=== PATIENT | male | born 1980 | race Caucasian/White ===

== ENCOUNTER 2019-09-18 10:12 | Emergency (ER) | payer BC ==
[2019-09-18] MEDS ORDERED: HYDROmorphone 1 MG/ML CARPUJECT IM STA (12:00)
[2019-09-18] MEDS ORDERED: KETOROLAC 60 MG/2 ML VIAL IM STA (12:00)
[2019-09-18 12:36] VITALS: BP 113/88
--- NOTE | 2019-09-18 13:38 | ED Physician Documentation ---
History of Present Illness - Stated complaint Stated Complaint: RT SHOULDER/NECK PX - Chief complaint Chief Complaint: Trauma Ext - Additonal information Additional information: Patient comes emergency department complaining of spasm around the area of his right scapula. Patient denies any trauma. He has not worked out recently or done any other heavy lifting. He states he is just been playing with his kids. He has a history of low back issues and is actually had several surgeries. He states that this is sometimes caused issues in his upper back and neck. However, he cannot think of a specific trigger today. Patient denies cough or shortness of breath. No fevers. He has some numbness in his right shoulder but not distal to that. No other complaints at this time. Review of Systems Ten Systems: 10 systems reviewed and negative Constitutional: reports: Reviewed and negative Eyes: reports: Reviewed and negative Ears: reports: Reviewed and negative Nose: reports: Reviewed and negative Throat: reports: Reviewed and negative Cardiac: reports: Reviewed and negative Respiratory: reports: Reviewed and negative GI: reports: Reviewed and negative : reports: Reviewed and negative Skin: reports: Reviewed and negative Musculoskeletal: reports: Neck pain, Back pain Neurologic: reports: Reviewed and negative Psychiatric: reports: Reviewed and negative Endocrine: reports: Reviewed and negative Immunocompromised: reports: Reviewed and negative PD PAST MEDICAL HISTORY - Past Medical History Past Medical History: Yes - Past Surgical History Past Surgical History: Yes - Present Medications Home Medications: Ambulatory Orders Medication Instructions Recorded Confirmed Cyclobenzaprine [Flexeril] 10 mg PO TID PRN #20 tablet 09/18/19 Hydrocodone/Acetaminophen 1 - 2 each PO Q6H PRN #14 tablet 09/18/19 [Hydrocodon-Acetaminophen 5-325] - Allergies Allergies/Adverse Reactions: Allergies Allergy/AdvReac Type Severity Reaction Status Date / Time Sulfa (Sulfonamide Allergy Unknown Verified 09/18/19 10:29 Antibiotics) - Social History Does the pt smoke?: No Smoking Status: Never smoker Does the pt drink ETOH?: No Substance Use and Type: Marijuana - Immunizations Immunizations are current?: Yes PD ED PE NORMAL - Vitals Vital signs reviewed: Yes - General General: Alert and oriented X 3, No acute distress - HEENT HEENT: Atraumatic, PERRL, EOMI, Moist mucous membranes - Neck Neck: Supple, no meningeal sign - Respiratory Respiratory: No respiratory distress - Back Back: Other (Patient has tenderness over his right scapula and trapezius distribution with muscle spasm. 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 We have discussed home management of symptoms, as well as the need for follow-up in the usual indications for return Departure - Departure Disposition: 01 Home, Self Care Clinical Impression: Torticollis, acute Thoracic back pain Qualifiers: Chronicity: acute Back pain laterality: right Qualified Code(s): M54.6 - Pain in thoracic spine Condition: Stable Instructions: ED Neck Back Pain General Prescriptions: Cyclobenzaprine [Flexeril] 10 mg PO TID PRN #20 tablet PRN Reason: Spasms Hydrocodone/Acetaminophen [Hydrocodon-Acetaminophen 5-325] 1 - 2 each PO Q6H PRN #14 tablet PRN Reason: pain
== END 2019-09-18 13:49 | disposition home or self-care (01) ==
LOC: ED 10:12
DX: M43.6 Torticollis (principal); M54.6 Pain in thoracic spine
CPT/HCPCS: 96372; 99283; J1170

== ENCOUNTER 2020-03-28 10:35 | Outpatient (CLI) | payer BC ==
[2020-03-28 17:40] LABS: BASOPHILS % (AUTO) 0.7 %; EOSINOPHILS # (AUTO) 0.2 10^3/uL (0.0-0.7); EOSINOPHILS % (AUTO) 3.9 %; HGB - HEMOGLOBIN 14.3 g/dL (14.0-18.0); LYMPHOCYTES # (AUTO) 0.9 10^3/uL (1.5-3.5); LYMPHOCYTES % (AUTO) 21.6 %; MEAN CORPUSCULAR HEMOGLOBIN 30.2 pg (27.0-31.0); MEAN CORPUSCULAR HGB CONC 33.2 g/dL (32.0-36.0); MEAN CORPUSCULAR VOLUME 90.9 fL (80.0-94.0); MEAN PLATELET VOLUME 10.1 fL (7.4-11.4); MONOCYTES # (AUTO) 0.5 10^3/uL (0.0-1.0); MONOCYTES % (AUTO) 11.3 %; NEUTROPHILS # (AUTO) 2.7 10^3/uL (1.5-6.6); NEUTROPHILS % (AUTO) 62.3 %; PLT - PLATELET COUNT 262 10^3/uL (130-450); RED BLOOD COUNT 4.74 10^6/uL (4.70-6.10); WHITE BLOOD COUNT 4.4 x10^3/uL (4.8-10.8)
[2020-03-28 18:01] LABS: ALBUMIN 4.5 g/dL (3.2-5.5); ALBUMIN/GLOBULIN RATIO 1.8 (1.0-2.2); BILIRUBIN,TOTAL 0.5 mg/dL (0.2-1.0); CALCIUM 9.5 mg/dL (8.5-10.3); CREATININE 0.8 mg/dL (0.6-1.2)
== END 2020-03-28 23:59 | disposition home or self-care (01) ==
LOC: LAB.WCP 10:35
PROVIDERS: ATTEND Family Medicine
DX: R10.32 Left lower quadrant pain (principal)
CPT/HCPCS: 36415; 80053; 83690; 85025

== ENCOUNTER 2020-03-29 08:16 | Outpatient (CLI) | payer BC ==
[2020-03-29] MEDS ORDERED: IOVERSOL 320 50 ML VIAL ONE (08:27)
[2020-03-29] MEDS ORDERED: IOVERSOL 320 100 ML VIAL IVP ONE ×2 (08:27→11:57)
--- NOTE | 2020-03-29 10:12 | CT Report ---
PROCEDURE: Abdomen/Pelvis W INDICATIONS: ABD PAIN, LLQ CONTRAST: IV CONTRAST: Optiray 320 ml: 100 PO CONTRAST: Optiray 320 ml50 TECHNIQUE: After the administration of oral and intravenous contrast, 5 mm thick sections acquired from the diap hragms to the symphysis. 5 mm thick coronal and sagittal reformats were acquired. For radiation dos e reduction, the following was used: automated exposure control, adjustment of mA and/or kV accordin g to patient size. COMPARISON: None. FINDINGS: Image quality: Excellent. ABDOMEN: Lung bases: Lung bases are clear. Heart size is normal. Solid organs: Liver and spleen are normal in size and enhancement. Gallbladder is unremarkable. Bi liary system is non dilated. Pancreas enhances normally. No adrenal nodules. Kidneys demonstrate n ormal size and enhancement, without hydronephrosis. Peritoneum and bowel: Question mild wall thickening involving the distal sigmoid and rectosigmoid ju nction region versus collapsed bowel resulting in mild wall thickening. There are small diverticuli i n this location. Bowel loops otherwise demonstrate normal wall thickness and caliber. No free fluid or air. Nodes and vessels: No retroperitoneal or mesenteric adenopathy by size criteria. Aorta and inferior vena cava are normal in size. Miscellaneous: No ventral hernias. PELVIS: Genitourinary: Bladder wall thickness is normal. Miscellaneous: No inguinal hernias or adenopathy. Bones: No suspicious bony lesions. No vertebral body compression fractures. Lower lumbar fusion, w ith gabby and pedicle screw fixation of L3, L4, and S1 and interbody fusion material at L4-L5. Posterio r laminectomy at L5-S1 and right hemilaminectomy at L4-L5. IMPRESSION: 1. Question very mild changes of distal sigmoid/rectosigmoid diverticulitis. There are scattered dive rticuli in this location and there is possible mild wall thickening versus nondistended bowel. 2. No other significant findings. Reviewed by: Abhishek Craft MD on 03/29/2020 10:10 AM PST Approved by: Abhishek Craft MD on 03/29/2020 10:10 AM PST Station ID: [id number]
[2020-03-29] MEDS ORDERED: IOVERSOL 320 50 ML VIAL PO ONE (11:57)
== END 2020-03-29 08:17 | disposition home or self-care (01) ==
LOC: DI 08:16
PROVIDERS: ATTEND Family Medicine
DX: K57.30 Diverticulosis of large intestine without perforation or abscess without bleeding (principal)
CPT/HCPCS: 74177; Q9967

== ENCOUNTER 2020-04-18 17:52 | Outpatient (CLI) | payer BC | END 2020-04-18 17:53 | disposition home or self-care (01) | LOC: COV 17:52 | PROVIDERS: ATTEND Surgery | DX: Z01.812 Encounter for preprocedural laboratory examination (principal); R10.9 Unspecified abdominal pain; K92.1 Melena; Z20.828 Contact with and (suspected) exposure to other viral communicable diseases ==

== ENCOUNTER 2020-04-22 12:33 | Day surgery (SDC) | payer BC ==
[2020-04-22] MEDS ORDERED: LACTATED RINGERS 1,000 ML IV ONE ×2 (12:51→15:41)
[2020-04-22] MEDS ORDERED: LIDO GARGLE 30 ML BOTTLE ONE (14:23)
[2020-04-22] MEDS ORDERED: BENZOCAINE/TETRACAINE/BUTAMBEN 20 GM ONE (14:23)
[2020-04-22] MEDS ORDERED: fentaNYL 100 MCG/2 ML VIAL IVP ONE (14:28)
[2020-04-22] MEDS ORDERED: MIDAZOLAM 2 MG/2 ML VIAL IVP ONE (14:28)
[2020-04-22] MEDS ORDERED: BENZOCAINE/TETRACAINE/BUTAMBEN 20 GM TOP ONE (14:40)
[2020-04-22] MEDS ORDERED: LIDO GARGLE 30 ML BOTTLE TOP ONE (14:40)
[2020-04-22 15:56] VITALS: BP 115/87
--- NOTE | 2020-04-22 17:40 | ANESTHESIA ---
Pre-Anesthesia VS, & Labs - Diagnosis melena, gerd - Procedure EGD, colonoscopy Vital Signs: Temp Pulse Resp BP Pulse Ox 36.4 C L 79 19 115/87 H 100 04/22/20 15:46 04/22/20 15:53 04/22/20 15:53 04/22/20 15:53 04/22/20 15:53 Height: 6 ft 6 in Weight (kg): 93 kg Body Mass Index: 23.6 BMI Classification: Healthy weight - NPO >8 hours Home Medications and Allergies Home Medications: Ambulatory Orders Omeprazole 20 mg PO DAILY 04/21/20 Omeprazole 20 mg PO DAILY 04/21/20 Allergies/Adverse Reactions: Allergies Allergy/AdvReac Type Severity Reaction Status Date / Time Sulfa (Sulfonamide Allergy Unknown Verified 04/22/20 12:38 Antibiotics) Anes History & Medical History - Anesthetic History Anesthesia Complications: reports: No previous complications - Medical History Cardiovascular: reports: None Pulmonary: reports: None Gastrointestinal: reports: None Urinary: reports: None Musculoskeletal: reports: None Endocrine/Autoimmune: reports: None Skin: reports: None Smoking Status: Never smoker - Surgical History General: Appendectomy Exam General: Other (verbal, lucid) Dental: WNL Mouth Opening: Greater than 4 Fingerbreadths Neck Mobility: Normal Mallampati classification: II Thyromental Distance: greater than 6 cm Respiratory: Lungs clear Cardiovascular: Regular rate Plan Anesthesia Type: MAC, Total IV Consent for Procedure(s) Verified and Reviewed: Yes Code Status: Attempt Resuscitation ASA classification: 2-Mild systemic disease Is this case an emergency?: No (called in to rescue inadequate sedation)
--- NOTE | 2020-04-22 17:44 | ANESTHESIA POST OP EVALUATION ---
Anesthesia Post Eval - Post Anesthesia Eval Vitals: Last Vital Signs Temp 36.4 C L 04/22/20 15:46 Pulse 79 04/22/20 15:53 Resp 19 04/22/20 15:53 BP 115/87 H 04/22/20 15:53 Pulse Ox 100 04/22/20 15:53 CV Function Including HR & BP: positive: Stable Pain Control: positive: Satisfactory Nausea & Vomiting: positive: Negative Mental Status: positive: Patient Participates Respiratory Status: Airway Patent Hydration Status: Satisfactory
== END 2020-04-22 12:34 | disposition home or self-care (01) ==
LOC: SDS 12:33
PROVIDERS: ATTEND Surgery
PROC: 0DB38ZX Excision of Lower Esophagus, Via Natural or Artificial Opening Endoscopic, Diagnostic (ICD-10-PCS; principal; 2020-04-22 13:30)
PROC: 0DBE8ZX Excision of Large Intestine, Via Natural or Artificial Opening Endoscopic, Diagnostic (ICD-10-PCS; 2020-04-22 13:30)
DX: K21.00 Gastro-esophageal reflux disease with esophagitis, without bleeding (principal); K92.1 Melena; R10.32 Left lower quadrant pain; R19.7 Diarrhea, unspecified; Z79.899 Other long term (current) drug therapy
CPT/HCPCS: 43239; 45380; 87081; A9270; J7120

== ENCOUNTER 2020-12-26 19:29 | Outpatient (CLI) | payer BC | END 2020-12-26 19:30 | disposition home or self-care (01) | LOC: COV 19:29 | PROVIDERS: ATTEND Family Medicine | DX: R05 Cough (principal); M79.10 Myalgia, unspecified site; R53.83 Other fatigue; R07.0 Pain in throat; J34.89 Other specified disorders of nose and nasal sinuses; Z20.822 Contact with and (suspected) exposure to COVID-19 ==

== ENCOUNTER 2021-04-28 08:06 | Outpatient (CLI) | payer BC ==
[2021-04-28 12:57] LABS: THYROID STIMULATING HORMONE 1.45 uIU/mL (0.34-5.60)
[2021-04-28 13:46] LABS: ALBUMIN 4.3 g/dL (3.2-5.5); ALBUMIN/GLOBULIN RATIO 1.8 (1.0-2.2); ALKALINE PHOSPHATASE 43 IU/L (42-121); ALT ALANINE AMINOTRANSFERASE 20 IU/L (10-60); AST ASPARTATE AMINOTRANSFERASE 19 IU/L (10-42); BILIRUBIN,TOTAL 0.6 mg/dL (0.2-1.0); BUN - BLOOD UREA NITROGEN 10 mg/dL (6-20); CARBON DIOXIDE - CO2 27 mmol/L (21-32); CHLORIDE 102 mmol/L (101-111); CHOL/HDL RATIO 3.3 (<5.0); CHOLESTEROL 155 mg/dL; CREATININE 0.8 mg/dL (0.6-1.2); GFR - MDRD 107 (>89); GLUCOSE 98 mg/dL (70-100); HDL CHOLESTEROL 47 mg/dL; LDL CHOLESTEROL,CALCULATED 96 mg/dL; POTASSIUM 4.5 mmol/L (3.5-5.0); SODIUM 137 mmol/L (135-145); TOTAL PROTEIN 6.7 g/dL (6.7-8.2); TRIGLYCERIDES 60 mg/dL; VLDL CHOLESTEROL 12 mg/dL
== END 2021-04-28 23:59 | disposition home or self-care (01) ==
LOC: LAB.WCP 08:06
PROVIDERS: ATTEND Internal Medicine
DX: F41.9 Anxiety disorder, unspecified (principal); Z13.220 Encounter for screening for lipoid disorders; Z13.1 Encounter for screening for diabetes mellitus
CPT/HCPCS: 36415; 80053; 80061; 83721; 84443